=== PATIENT | female | born 1980 | race Caucasian/White ===

== ENCOUNTER 2019-02-20 18:16 | Inpatient (IN) | payer MEDICAID ==
[~2019-02-20] VITALS: Ht 157.5 cm; Wt 92.2 kg
[~2019-02-20 18:16] MED LIST: METH250T5 PO; PREN-29 PO
[2019-02-20 18:35] VITALS: Ht 157.5 cm; Wt 92.2 kg
[2019-02-20 18:36] VITALS: BP 144/77; PULSE 74; RESP 18
--- NOTE | 2019-02-20 18:58 | TRIAGE ---
OB Triage Datetime Report Generated by CPN: 02/20/2019 18:57 Datetime: 02/20/2019 18:46 Vaginal Exam Dilatation (cms): 2.0 Effacement (%): 60 Station: -2 Exam By: AO Vaginal Bleeding: Normal Show Cervix, Consistency: Moderate Cervix, Position: Midposition Presentation 'A': Cephalic Datetime: 02/20/2019 18:42 Stage of : OB Triage Assessment Type: Triage Maternal Assessment Level of Consciousness: Fully Conscious DTR's/Clonus: DTRs 2+; No Clonus Headache: Denies Blurred Vision: No Respiratory Effort: Unlabored; Regular Rhythm; Equal Expansion Breath Sounds, Left: Clear and Equal Breath Sounds, Right: Clear and Equal Nausea/Vomiting: Denies RUQ Epigastric Pain: Denies Lower Extremities Edema: None Degree: None Upper Extremities Edema: None Degree: None Facial Edema: None Temperature Route: Oral Fall Risk Assessment History of Falling: (0) No Secondary Diagnosis: (0) No Ambulatory Aid: (0) Bedrest/Nurse Assist IV Therapy: (0) No Gait: (0) Normal/Bedrest/Immobile Mental Status: (0) Oriented to Own Ability Fall Score: 0 Fall Risk Score Definition: No Risk: No action required Labor Evaluation Frequency: 2-4 Monitor Mode: External Duration (sec)2399: 30-90 Quality: Moderate Resting Tone [place]: Relaxed Heart Rate FHR Baseline Rate: 140 Monitor Mode: External US FHR Baseline Changes: No Baseline Change Variability: Moderate 6-25 bpm Accelerations: 15X15 Decelerations: Early Category: Category I Pain Assessment Pain Scale: 4 Pain Presence: Intermittent Pain Type: Contraction Pain Location: Abdomen Datetime: 02/20/2019 18:40 Time of Arrival: 02/20/2019 18:09 EGA: 38.2 Arrived By: Ambulatory Arrived From: Home Chief Complaint: UCs Movement: Present Contractions: Regular Time Contractions Began: 02/20/2019 15:00 Contractions: 5 Rupture of Membranes: Denies Vaginal Bleeding: Scant Vaginal Discharge: Present Recent Sexual Intercouse: Denies Abdominal Trauma: Not Applicable Patient Complaints: Contractions Provider Notified: [id number] Initial Plan: AZALEA FLORES
[2019-02-20] MEDS ORDERED: OXYTOCIN 30 UNITS/LR 500 ML IV SCH ×3 (19:30)
[2019-02-20] MEDS ORDERED: CARBOPROST 250 MCG INJ IM PRN (19:30)
[2019-02-20] MEDS ORDERED: LIDOCAINE 1% (MPF) 30 ML INJ INJ PRN (19:30)
[2019-02-20] MEDS ORDERED: METHYLERGONOVINE 0.2 MG INJ IM PRN (19:30)
[2019-02-20] MEDS ORDERED: IBUPROFEN 600 MG TAB PO PRN (19:30)
[2019-02-20] MEDS ORDERED: MISOPROSTOL 200 MCG TAB PR PRN (19:30)
[2019-02-20] MEDS ORDERED: OXYCODONE/ASPIRIN (4.88/325) TAB PO PRN (19:30)
[2019-02-20] MEDS ORDERED: BUTORPHANOL 2 MG INJ IV PRN ×2 (19:30)
[2019-02-20] MEDS ORDERED: OXYTOCIN 30 UNITS/LR 500 ML IV PRN (19:30)
[2019-02-20] MEDS: LACTATED RINGER'S 1,000 ML IV SCH (19:33)
[2019-02-21] MEDS: LACTATED RINGER'S 1,000 ML IV SCH ×4 (03:13→11:30)
--- NOTE | 2019-02-21 04:37 | PREAC ---
Date/Time of Note Date/Time of Note DATE: 02/21/19 TIME: 04:36 Anesthesia Eval and Record Evaluation Time Pre-Procedure Interview DATE: 02/21/19 TIME: 04:36 Age 38 Sex female NPO: 8 hrs Preoperative diagnosis labor pain Planned procedure epidural Past Medical History Past Medical History: Includes Cardio: HTN : Gestational age: (38.3), Gestational diabetes Surgery & Anesthesia Issues No known issue Meds Anticoagulation: No Beta Sonu within 24 hr: No Reason Beta Sonu not given: Pt. not on B-Sonu Reported Medications Methyldopa* (Aldomet*) 250 Mg Tablet, 250 MG PO DAILY, #30 TAB 08/22/16 Vit-Fe Fumarate-FA* (Marcus Tablet*) 1 Tab Tablet, 1 TAB PO D AILY, TAB 10/05/14 Current Medications Lactated Ringer's 1,000 ml @ 125 mls/hr Q8H IV Last administered on 02/21/19at 03:13; Admin Dose 125 MLS/HR; Start 02/20/19 at 19:02 Butorphanol Tartrate (Stadol) 1 mg Q2H PRN IV PAIN; Start 02/20/19 at 19:30 Butorphanol Tartrate (Stadol) 2 mg Q2H PRN IV .PAIN; Start 02/20/19 at 19:30 Lidocaine (Xylocaine 1% (Mpf)) 30 ml ONCE PRN INJ .EPISIOTOMY; Start 02/20/19 at 19:30 Oxytocin/Lactated Ringer's 500 ml @ 500 mls/hr ONCE POST IV ; Start 02/20/19 at 19:30 Oxytocin/Lactated Ringer's 500 ml @ 125 mls/hr POST IV ; Start 02/20/19 at 19:30 Ibuprofen (Motrin) 600 mg ONCE PRN PO .PAIN 1-5; Start 02/20/19 at 19:30 Oxycodone/Aspirin (Percodan) 2 tab ONCE PRN PO .PAIN 6-10; Start 02/20/19 at 19:30 Oxytocin/Lactated Ringer's 500 ml @ 0 mls/hr ONCE PRN IV .VAGINAL BLEEDING; Start 02/20/19 at 19:30 Methylergonovine Maleate (Methergine) 0.2 mg ONCE PRN IM .VAGINAL BLEEDING; Start 02/20/19 at 19:30 Carboprost Tromethamine (Hemabate) 250 mcg ONCE PRN IM .VAGINAL BLEEDING; Start 02/20/19 at 19:30 Misoprostol (Cytotec) 1,000 mcg ONCE PRN AL .VAGINAL BLEEDING; Start 02/20/19 at 19:30 Oxytocin/Lactated Ringer's 500 ml @ 0 mls/hr FOR AUGMENTATION IV Last administered on 02/20/19at 21:02; Admin Dose 1 MLS/HR; Start 02/20/19 at 19:30 Meds reviewed: Yes Allergies Coded Allergies: No Known Allergy (Unverified , 08/27/16) Allergies Reviewed: Yes Labs/Studies Labs Reviewed: Reviewed by anesthesiologist Result Diagram: 02/20/19190902/20/191909 Laboratory Tests 02/20/19 19:10 Blood Bank Test 02/20/19 19:13 Antibody Screen NEGATIVE Blood Type O POSITIVE Rh Immune Globulin Candidate NO test: Positive Studies: ECG (n/a), CXR (n/a) Pre-procedure Exam Last vitals Vital Signs Date Temp Pulse Resp B/P (MAP) Pulse Ox O2 O2 Flow FiO2 Time Delivery Rate 02/20/19 98.1 74 18 144/77 Room Air 18:36 (99) Airway: Adequate mouth opening Mallampati: Mallampati I Teeth: Normal Lung: Normal Heart: Normal ASA Physical Status ASA physical status: 2 Emergency: None Planned Anesthetic Neuraxial: Epidural Pre-operative Attestations Prior to commencing anesthesia and surgery, the patient was re-evaluated, there was verification of: *The patient's identity *The results of appropriate recent lab work and preoperative vital signs *The above evaluation not changing prior to induction *Anesthetic plan, risk benefits, alternative and complications discussed with patient/family; questions answered; patient/family understands, accepts and wishes to proceed. MARK VARNER MD February 21, 2019 04:37
[2019-02-21] MEDS ORDERED: FENTAnyl 2MCG/ML-ROPIV 0.2% 100 ML BAG EPI SCH (04:43)
[2019-02-21] MEDS ORDERED: DIPHENHYDRAMINE 50 MG INJ IV PRN (05:00)
[2019-02-21] MEDS ORDERED: NALOXONE (0.4 MG/ML) INJ IV PRN (05:00)
[2019-02-21] MEDS ORDERED: ONDANSETRON 4 MG INJ IV PRN (05:00)
[2019-02-21] MEDS ORDERED: SOD CHLORIDE 0.9% 1,000 ML IV PRN (09:00)
--- NOTE | 2019-02-21 12:26 | LDN ---
Date/Time of Note Date/Time of Note DATE: 02/21/19 TIME: 12:23 Delivery Summary Vacuum assisted vaginal delivery for repetitive decels by Dr Coats with delivery of a viable baby boy weighing 2930 grams or 6# 7 oz, 19" long, and with Apgars of 8/8. The baby had a double nuchal cord and evidence of a small abruption, per Dr Coats. Weeks of Gestation 38w 3d Assisted Vaginal Delivery: Vacuum Placenta Delivered: Spontaneously Meconium: none Episiotomy: No Laceration repair: 1st degree laceration repaired. Anesthesia type: Epidural Estimated blood loss: 300 Sponge & Needle done & correct: Yes All needle counts correct: Yes Any foreign bodies felt in the: No (vagina) Delivery Information Sex Sex: male Apgars 1 Minute: 8 5 Minute: 8 Suctioning Nose & mouth suctioned at obdulia: Yes Delee suction performed: No Umbilical Cord Umbilical cord with: 3 Vessels Cord presentations: nuchal cord Nuchal cord present X: 2 Cord Blood was obtained: Yes Mother & Baby Disposition Disposition Mom & Baby to Maternity; Good: Yes Baby to NICU: No MARK GRANT MD February 21, 2019 12:26
--- NOTE | 2019-02-21 12:33 | HP ---
Date/Time of Note Date/Time of Note DATE: 02/21/19 TIME: 12:26 OB - History Hx of Present Free Text/Dictation 37 y.o. with an IUP at 38w 2d came in labor with slightly elevated blood pressures and a h/o PIH in prior pregnancies. Her initial cervical exam was 60%/2 cm/intact. Chief Complaint: Labor Estimated Due Date: March 04, 2019 : 3 Para: 2 Care: Good Care Ultrasounds: Abnormal US findings Abnormal Ultrasound Findings: left hydronephrosis Obstetrical Complications: Pre-eclampsia Medical Complications: None Past Family/Social History * Past Medical, Surgical, Family and Obstetric Histories reviewed from chart. Blood Type: O+ Rubella: immune RPR/VDRL: Negative GBS Status: Negative HBsAG: Negative OB Admission Exam Vital Signs Vital Signs Vital Signs Date Temp Pulse Resp B/P (MAP) Pulse Ox O2 O2 Flow FiO2 Time Delivery Rate 02/20/19 98.1 74 18 144/77 Room Air 18:36 (99) Physical Exam HEENT: WNL Heart: Rhythm Normal Lungs: Clear Abdomen: WNL Extremities: Normal Reflexes: Normal Cervical Dilatation: 2cm Effacement: Other (60%) Station: -2 Membranes: Intact Amniotic Fluid: Clear Heart Rate: 140's Accelerations: Accelerations Present Decelerations: No Decelerations Varibility: Moderate Contractions on Admission: < 5 Minutes Apart Intensity: Moderate Last 72 hours Lab Results CBC & BMP 02/20/19 19:10 Liver Function Test 02/20/19 19:10 Alanine Aminotransferase (ALT/SGPT) 18 Albumin 3.9 Alkaline Phosphatase 122 H Aspartate Amino Transf (AST/SGOT) 26 Direct Bilirubin 0.00 Total Protein 7.4 OB Assessment/Plan Reason for admission: active labor Other Assessment: Mild PIH Plan: Other (Augmentation) Other plan: Magnesium only if BP's persistently elevated MARK GRANT MD February 21, 2019 12:33
[2019-02-21] MEDS ORDERED: MISOPROSTOL 200 MCG TAB PR PRN (13:00)
[2019-02-21] MEDS ORDERED: HYDROCODONE/APAP (5/325) TAB PO PRN (13:00)
[2019-02-21] MEDS ORDERED: CARBOPROST 250 MCG INJ IM PRN (13:00)
[2019-02-21] MEDS ORDERED: LANOLIN HPA 1 PKT TOP PRN (13:00)
[2019-02-21] MEDS ORDERED: OXYTOCIN 30 UNITS/LR 500 ML IV PRN (13:00)
[2019-02-21] MEDS ORDERED: METHYLERGONOVINE 0.2 MG INJ IM PRN (13:00)
[2019-02-21 14:15] VITALS: BP 119/69; PULSE 76; RESP 18
[2019-02-21 16:00] VITALS: BP 136/74; PULSE 73; RESP 18
[2019-02-21] MEDS: LACTATED RINGER'S 1,000 ML IV* SCH ×2 (16:00→20:33)
[2019-02-21] MEDS: OXYTOCIN 30 UNITS/LR 500 ML IV SCH ×2 (16:39→22:33)
[2019-02-21] MEDS: IBUPROFEN 600 MG TAB PO SCH ×2 (17:27→23:40)
[2019-02-21 20:00] VITALS: BP 124/61; PULSE 66; RESP 18
[2019-02-22 04:00] VITALS: BP 122/55; PULSE 56; RESP 18
[2019-02-22] MEDS: IBUPROFEN 600 MG TAB PO SCH ×3 (05:10→17:57)
[2019-02-22 09:00] VITALS: BP 113/57; PULSE 72; RESP 18
--- NOTE | 2019-02-22 13:22 | DS ---
Date/Time of Note Date/Time of Note DATE: 02/22/19 TIME: 13:21 Obstetrical Discharge Record Final Diagnosis Final Diagnosis: Term delivered Other Final Diagnosis Mild PIH Vaginal Delivery Obstetrical Delivery: Vacuum Extraction, Laceration, Repaired Complications Preg induced Hypertension Augmentation: Yes Induction: No Rupture of Membranes: No Condition on Discharge Physical Assessment Last Vitals: T=98.0 BP 122/55 Voiding: Yes Bowel Movement: Yes Breast: Soft, non-tender Fundus: Firm Episiotomy: Laceration intact. Calf Tenderness: No Patient Condition: Good MARK GRANT MD February 22, 2019 13:22
--- NOTE | 2019-02-22 13:23 | PD.PPDC ---
PUBLICITY MANAGER Discharge Instruction Condition [id number] Patient Condition: Lwddv3v Good Diet Guagw3Ec Diet: Ggmgx1x Resume Regular Diet Activity/Restrictions [id number] Activity: [id number] Normal Activity Ehubc1Sb Restrictions: Ymmtq3v No Sexual Activity Nothing in the Vagina No Mcgrew No Tampons, douche Follow-up Follow-up with Physician: 6, Week/Weeks Return to clinic for [id number] FOOD SERVICES COORDINATOR Instructions: Oewnv6h Fever greater than 101 Chills Worsening abdominal pain Excessive Vaginal Bleeding [id number] OB Instructions: Ugaup2o Breast Tenderness Depression Blurried Vision Headache MARK GRANT MD February 22, 2019 13:23
--- NOTE | 2019-02-22 15:29 | PAC ---
Date/Time of Note Date/Time of Note DATE: 02/22/19 TIME: 15:29 Post-Anesthesia Notes Post-Anesthesia Note Last documented vital signs Vital Signs Date Temp Pulse Resp B/P (MAP) Pulse Ox O2 O2 Flow FiO2 Time Delivery Rate 02/22/19 98.0 56 18 122/55 98 Room Air 04:00 (77) Activity: WNL Respiratory function: WNL Cardiovascular function: WNL Mental status: Baseline Pain reasonably controlled: Yes Hydration appropriate: Yes Nausea/Vomiting absent: No MARK VARNER MD February 22, 2019 15:29
[2019-02-22 16:00] VITALS: BP 116/70; PULSE 60; RESP 17
[2019-02-22 20:00] VITALS: BP 117/66; PULSE 63; RESP 18
[2019-02-23] MEDS: IBUPROFEN 600 MG TAB PO SCH ×4 (00:01→17:56)
[2019-02-23 04:09] VITALS: BP 121/79; PULSE 62; RESP 20
[2019-02-23 08:00] VITALS: BP 106/56; PULSE 70; RESP 18
[2019-02-23] MEDS ORDERED: DIPHTH/TET/ACEL PERTUSS (ADULT) 0.5 ML VIAL IM* ONE (09:00)
[2019-02-23 15:55] VITALS: BP 124/72; PULSE 72; RESP 18
--- NOTE | 2019-02-24 19:03 | DELSUM ---
Delivery Summary A-C Datetime Report Generated by CPN: 02/24/2019 19:03 DELIVERY PERSONNEL Production Clerks Supervisor: Manisha Petea MATERNAL INFORMATION Delivery Anesthesia: Epidural Medications in Delivery: 30 Units Pitocin Delivery QBL (ml): 300 Placenta Cultured: No Maternal Complications: Abruptio Placenta; Other Other Maternal Complications: ELEVATED BP RN Comments: Placenta to pathology LABOR SUMMARY EDC: 03/04/2019 00:00 No. Babies in Womb: 1 Attempted: No Labor Anesthesia: Epidural LABOR INFORMATION Reason for Induction: Gest. HTN/PreEclam/Eclamp Onset of Labor: 02/20/2019 18:00 Complete Dilatation: 02/21/2019 10:57 Oxytocin: Induction Group B Beta Strep: Negative Antibiotics # of Doses: 0 Steroids Given: None Reason Steroids Not Administered: Not Applicable MEMBRANES Membranes Rupture Method: Spontaneous Rupture of Membranes: 02/21/2019 03:53 Length of Rupture (hr): 7.87 Amniotic Fluid Color: Clear Amniotic Fluid Amount: Small Amniotic Fluid Odor: None STAGES OF LABOR Stage 1 hr: 16 Stage 1 min: 57 Stage 2 hr: 0 Stage 2 min: 48 Stage 3 hr: 0 Stage 3 min: 2 Total Time in Labor hr: 17 Total Time in Labor min: 47 VAGINAL DELIVERY Episiotomy: None Laceration Extension: First Degree Laceration Type: Perineal Laceration Repair: Yes Initial Vag Sponge Count: 10 Final Vag Sponge Count: 10 Initial Vag Sharps Count: 2 Final Vag Sharps Count: 2 Sponge Count Correct: Yes Sharps Count Correct: Yes BABY A INFORMATION Infant Delivery Date/Time: 02/21/2019 11:45 Method of Delivery: Vaginal Born in Route : No : N/A Forceps: N/A Vacuum Extraction: Successful Shoulder Dystocia : N/A ASSISTED DELIVERY BABY A Indication for Assisted Delivery: Prolonged deceleration Catheter Prior to Procedure: Yes Station Vacuum/Forcep Apply: +3 Vacuum Number of Pulls: 3 Vacuum Number of PopOffs: 1 Reduce Pressure btwn Ctx: Yes Vacuum Artist'S Manager: KIWI Total Time Vacuum Applied: 4 minutes Vacuum/Forceps Comment: pressure controlled by per with each application SHOULDER DYSTOCIA BABY A Delivery Date/Time: 02/21/2019 11:45 PRESENTATION/POSITION BABY A Presentation: Cephalic Cephalic Presentation: Vertex Vertex Position: Left Occipital Anterior Breech Presentation: N/A PLACENTA INFORMATION BABY A Placenta Delivery Time : 02/21/2019 11:47 Placenta Method of Delivery: Spontaneous Placenta Status: Delivered SCORES BABY A Heart Rate 1 min: >100 bpm Resp Effort 1 min: Good Cry Reflex Irritability 1 min: Cough/Sneeze/Pulls Away Muscle Tone 1 min: Active Motion Color 1 min: Blue/Pale Resuscitation Effort 1 min: Tactile Stimulation SCORE 1 MIN: 8 Heart Rate 5 min: >100 bpm Resp Effort 5 min: Slow, Irregular Reflex Irritability 5 min: Cough/Sneeze/Pulls Away Muscle Tone 5 min: Active Motion Color 5 min: Body [place], Extremit Blue Resuscitation Effort 5 min: Tactile Stimulation; Oxygen SCORE 5 MIN: 8 INFORMATION BABY A Gestational Age at Delivery: 38.3 Gestational Status: Early Term- 37- 38.6 Weeks Outcome : Liveborn Infant Condition : Stable Sex: Male IDENTIFICATION/MEDS BABY A ID Band Number: [id number] ID Band Location: Right Leg; Left Arm Sensor Applied: Yes Sensor Number: [id number] Sensor Location : Cord Clamp Vitamin K Given : Not Given Erythromycin Given: Not Given WEIGHT/LENGTH BABY A Birthweight (gm): 2930 Weight (lb): 6 Infant Weight (oz): 7 Length (in): 19.00 Length (cm): 48.26 CORD INFORMATION BABY A No. Cord Vessels: 3 Nuchal Cord : Around Neck x2, Tight Cord Blood Taken: Yes Banking/Donate Info: NONE Infant Suction: Mouth; Nose ASSESSMENT BABY A Complications: None Physical Findings at Delivery: Within Normal Limits Respirations: Grunting; Intercostal Retractions [employer] Teacher/ALS Called : No Infant Care By: Juan R beauchamp Transferred To: Remains with Mother
== END 2019-02-23 18:00 | disposition home or self-care (01) | DRG 807 ==
LOC: OBT 18:16 → L-D 18:17 → OBT 18:57 → L-D 18:57 → PP1 02-21 14:14
PROVIDERS: ADMIT Obstetrics & Gynecology; ATTEND Obstetrics & Gynecology
PROC: 10E0XZZ Delivery of Products of Conception, External Approach (ICD-10-PCS; principal; 2019-02-21)
PROC: 0HQ9XZZ Repair Perineum Skin, External Approach (ICD-10-PCS; 2019-02-21)
DX: O14.94 Unspecified pre-eclampsia, complicating childbirth (principal); Z37.0 Single live birth; O69.81X0 Labor and delivery complicated by cord around neck, without compression, not applicable or unspecified; O70.0 First degree perineal laceration during delivery; O13.4 Gestational [pregnancy-induced] hypertension without significant proteinuria, complicating childbirth; Z3A.38 38 weeks gestation of pregnancy
CPT/HCPCS: 36415; 36600; 62322; 80053; 81001; 82803; 84560; 85025; 85610; 85730; 86592; 86850; 86900; 86901; 88307; 99464; G0463; J2590; J3010; J7120